=== PATIENT | female | born 1975 | race Native Hawaiian/Other Pacific Islander ===

== ENCOUNTER 2017-01-31 06:58 | Outpatient (CLI) | payer OTHER ==
[~2017-01-31 06:58] MED LIST: AMITRIPTYLIN50 MG PO; ATIVAN0.5 MG PO; BACLOFEN20 MG OR; BUTO10SO; CLONIDINE0.1 MG PO; FLUO20CA6 PO; FLUOXETINE40 MG PO; GLUCOPHAGE1000 MG PO; HUMALOG100 MG/ML SC; INSU100I2 SC; LIPITOR20 MG PO; LISI10TA11 PO; LORA10TA3 PO; LORA1TAB17 PO; LORTAB 10/5001 EACH PO; NEURONTIN 100M100 MG OR; NOVOLOG SC; NOVOLOG100 MG/ML SC; OLAN10TA2 PO; PANT40TA PO; SIMV10TA PO; SIMV40TA57; SOMA350 MG PO; TIZA4TAB5 PO; TRIM800T12 PO; ZANTAC300 MG PO; ZOLP10TA2 PO
[2017-01-31 07:52] LABS: PLATELET COUNT 295 K/uL (152-353)
[2017-01-31 08:59] LABS: POTASSIUM 3.8 mmol/L (3.6-5.2); SODIUM 140 mmol/L (136-145)
== END 2017-01-31 19:03 | disposition home or self-care (01) ==
LOC: LABW 06:58
PROVIDERS: Family Medicine
DX: M54.5 Low back pain (principal); E03.8 Other specified hypothyroidism; E66.8 Other obesity; E11.9 Type 2 diabetes mellitus without complications; E55.9 Vitamin D deficiency, unspecified; R82.99 Other abnormal findings in urine
CPT/HCPCS: 36415; 80053; 80061; 81000; 82043; 82306; 82570; 83036; 84439; 84443; 84550; 85027; 87086; 87088

== ENCOUNTER 2017-02-26 03:05 | Observation (INO) | payer OTHER ==
[~2017-02-26] VITALS: Ht 165.1 cm; Wt 102.7 kg
[2017-02-26 03:15] VITALS: BP 146/88; TEMP 97.7
[2017-02-26 03:37] LABS: PLATELET COUNT 308 K/uL (152-353)
[2017-02-26 03:45] LABS: POTASSIUM 4.2 mmol/L (3.6-5.2); SODIUM 137 mmol/L (136-145)
[2017-02-26 08:00] VITALS: BP 126/67; TEMP 98.7
[2017-02-26 10:17] VITALS: BP 126/67; TEMP 98.7; Ht 165.1 cm; Wt 102.7 kg
[2017-02-26 12:00] VITALS: BP 120/70; TEMP 98.5
[2017-02-26 16:00] VITALS: BP 101/52; TEMP 98.7
[2017-02-26 20:00] VITALS: BP 134/72; TEMP 98
[2017-02-27] VITALS: BP 105/58; TEMP 99.7
[2017-02-27 04:00] VITALS: BP 97/55; TEMP 99.1
[2017-02-27 06:59] LABS: PLATELET COUNT 258 K/uL (152-353)
[2017-02-27 07:09] LABS: POTASSIUM 4.2 mmol/L (3.6-5.2); SODIUM 132 mmol/L (136-145)
[2017-02-27 08:00] VITALS: BP 127/55; TEMP 98.7
[2017-02-27 12:00] VITALS: BP 90/48; TEMP 99.4
[2017-02-27 16:00] VITALS: BP 95/42; TEMP 99.3
[2017-02-27 20:00] VITALS: BP 117/52; TEMP 98.7
[2017-02-28] VITALS: BP 109/61; TEMP 99.1
[2017-02-28 04:00] VITALS: BP 113/64; TEMP 99
[2017-02-28 04:12] LABS: PLATELET COUNT 242 K/uL (152-353)
[2017-02-28 04:38] LABS: POTASSIUM 4.5 mmol/L (3.6-5.2); SODIUM 136 mmol/L (136-145)
[2017-02-28 08:00] VITALS: BP 111/62; TEMP 98.8
[2017-02-28 12:00] VITALS: BP 167/65; TEMP 99.4
== END 2017-02-28 14:00 | disposition home or self-care (01) ==
LOC: ED 03:05 → MED/SURG 05:00
PROVIDERS: Emergency Medicine
DX: K85.90 Acute pancreatitis without necrosis or infection, unspecified (principal); R10.84 Generalized abdominal pain
CPT/HCPCS: 36415; 36591; 80053; 82150; 82948; 83690; 83735; 85027; 86318; 93005; 96360; 96361; 96374; 96375; 99220; 99284; G0378; J1170; J3490; Q9963

== ENCOUNTER 2017-04-11 15:04 | Outpatient (CLI) | payer OTHER | END 2017-04-11 19:36 | disposition home or self-care (01) | LOC: RAD 15:04 | DX: M54.5 Low back pain (principal) ==

== ENCOUNTER 2017-08-15 15:12 | Outpatient (CLI) | payer OTHER | END 2017-08-15 19:13 | disposition home or self-care (01) | LOC: RAD 15:12 | DX: M54.31 Sciatica, right side (principal); M54.5 Low back pain; M25.551 Pain in right hip ==

== ENCOUNTER 2018-01-22 11:01 | Outpatient (CLI) | payer OTHER | END 2018-01-22 21:57 | disposition home or self-care (01) | LOC: MAMMO 11:01 | DX: Z12.31 Encounter for screening mammogram for malignant neoplasm of breast (principal) ==

== ENCOUNTER 2018-01-31 08:17 | Outpatient (CLI) | payer OTHER ==
[2018-01-31 08:43] LABS: PLATELET COUNT 312 K/uL (152-353)
== END 2018-01-31 22:04 | disposition home or self-care (01) ==
LOC: LABW 08:17
PROVIDERS: Podiatrist
DX: Z01.810 Encounter for preprocedural cardiovascular examination (principal); Z01.811 Encounter for preprocedural respiratory examination; Z01.812 Encounter for preprocedural laboratory examination; E11.41 Type 2 diabetes mellitus with diabetic mononeuropathy
CPT/HCPCS: 36415; 80053; 83036; 85027; 93005

== ENCOUNTER 2019-01-30 11:48 | Outpatient (CLI) | payer OTHER | END 2019-01-30 20:32 | disposition home or self-care (01) | LOC: LABW 11:48 | DX: B35.1 Tinea unguium (principal) | CPT/HCPCS: 36415; 84450; 84460 ==

== ENCOUNTER 2019-02-10 12:37 | Observation (INO) | payer OTHER ==
[~2019-02-10] VITALS: Ht 165.1 cm; Wt 108.5 kg
[2019-02-10 13:27] LABS: PLATELET COUNT 279 K/uL (152-353)
[2019-02-10 13:57] VITALS: BP 140/75; TEMP 98.7; Ht 165.1 cm; Wt 108.5 kg
--- NOTE | 2019-02-10 14:13 | NUR ---
1250 IN ADMISSION ASSESSMENT PT DENIES BEING ALLERGIC TO TORADOL. TORADOL REMOVED FROM PT ALLERGIES. CONSULTED WITH PHARMACY TO VERIFY REMOVING ALLERGY.
--- NOTE | 2019-02-10 14:16 | NUR ---
[address] ANDRADE TO REPORT LABS. REC'D ORDERS FOR CT WITHOUT CONTRAST. INCREASE DILAUDID FROM 1MG TO 2MG Q4HRS IF PT PAIN LEVEL HAS NOT COME DOWN.
[2019-02-10 16:00] VITALS: BP 140/66; TEMP 98.2
[2019-02-10 19:33] VITALS: BP 132/75; TEMP 97.8
--- NOTE | 2019-02-10 20:35 | NUR ---
Dr. Prasad called to check status of Patient, report given to Physician. New orders received, noted and carried out.
[2019-02-11] VITALS (7 sets, daily range): BP systolic 102–132; BP diastolic 57–76; TEMP 97.5–98.4
[2019-02-11 00:15] LABS: PLATELET COUNT 252 K/uL (152-353)
[2019-02-11 01:15] LABS: POTASSIUM 4.4 mmol/L (3.6-5.2)
[2019-02-11 06:31] LABS: PLATELET COUNT 275 K/uL (152-353)
[2019-02-11 06:40] LABS: POTASSIUM 4.7 mmol/L (3.6-5.2)
--- NOTE | 2019-02-11 06:57 | NUR ---
Patient was admitted with Acute Abdominla Pain, N/V, Dehydation, pancreatitis, DM II and is presently NPO. 5'5" and IBW 125+/-10% and is 190% IBW and BMI 39.6 and is Class II Obesity and Kcal for IBW 0283-5663, Protein 55-65 grams++, and Fluids for weight at 2700+++ d/t N/V and dehydration. Recommend: 1-Advance to a 1800 Calorie High Fiber, High Protein diet with increased MUS Fats (Avocado, Nuts, Canola and [place] Oil) and avoid Fast Foods and Fried Foods
--- NOTE | 2019-02-11 14:07 | NUR ---
1100 PT LAYING IN BED RESTING WATCHING TV. PT DENIES ANY COMPLAINTS AT THIS TIME. [address] ANDRADE TO STOP PT PHENERGAN AND START ZOFRAN 4MG IV Q6HRS.
[2019-02-11 17:31] LABS: POTASSIUM 4.3 mmol/L (3.6-5.2)
[2019-02-12 04:00] VITALS: BP 125/73; TEMP 98.2
--- NOTE | 2019-02-12 04:27 | NUR ---
Patient is a 43 YOF and was admitted with acute abdominla pain, N/V and dehydration, DM II and R/O Pancreatitis and is presently NPO and IBW 125+/-10% and is 190%IBW and BMI at 39.6 and is Class II Obesity and kcal needs for IBW 3987-8839, Protein needs - 57-67 grams and Fluids 3324-9356 and for weight at 238 = 5758-4903 for weight x 30 ++ d/x dx. Recommend: 1- INcrease Fluids as Tolerated. 2- Advance to a 1800 Calorie High Fiber diet
[2019-02-12 05:46] LABS: PLATELET COUNT 231 K/uL (152-353)
[2019-02-12 06:06] LABS: POTASSIUM 4.8 mmol/L (3.6-5.2)
[2019-02-12 08:00] VITALS: BP 131/65; TEMP 97.9
[2019-02-12 12:00] VITALS: BP 108/60; TEMP 98
[2019-02-12 16:00] VITALS: BP 111/60; TEMP 98
[2019-02-12 20:19] VITALS: BP 138/57; TEMP 98.6
[2019-02-12 23:43] VITALS: BP 121/79; TEMP 97.7
[2019-02-13 04:00] VITALS: BP 145/79; TEMP 98.3
[2019-02-13 05:06] LABS: POTASSIUM 4.4 mmol/L (3.6-5.2)
[2019-02-13 08:00] VITALS: BP 139/82; TEMP 98.1
[2019-02-13 12:00] VITALS: BP 109/64; TEMP 97.8
--- NOTE | 2019-02-13 14:25 | NUR ---
IV DC TIP INTACT. PT DC VIA WC. PT INSTRUCTED TO F/U WITH DR ANDRADE ON 02/28/19 AT 1030. PT WILL BE REFERRED TO DR JENNINGS AN OUTPATIENT. PRESCRIPTIONS GIVEN FOR PROTONIX 40 MG PO DAILY, TRAMADOL 50 MG PO Q4-6 HR PRN PAIN, MIRALAX 17 GM MIXED WITH 8 OZ JUICE ONCE-TWICE A DAY PRN CONSTIPATION PRESCRIPTION CALLED INTO [facility] FOR PHENERGAN 25 MG PO Q6HR PRN NAUSEA/ VOMITTING. PT INSTRUCTED TO CALL DR ANDRADE IF N/V PERSIST OR PAIN INCREASES. PT INSTRUCTED TO FOLLOW A BLAND DIET, INCREASE FLUID INTAKE, AND AVOID SOFT DRINKS. PT VERBALIZES UNDERSTANDING.
== END 2019-02-13 14:25 | disposition home or self-care (01) ==
LOC: MED/SURG 12:37
PROVIDERS: ADMIT Family Medicine
DX: K85.90 Acute pancreatitis without necrosis or infection, unspecified (principal); R10.84 Generalized abdominal pain; E86.0 Dehydration; R11.2 Nausea with vomiting, unspecified; E11.9 Type 2 diabetes mellitus without complications; M79.7 Fibromyalgia; E78.49 Other hyperlipidemia; E03.8 Other specified hypothyroidism
CPT/HCPCS: 36415; 74022; 80053; 80061; 81000; 82150; 82948; 83605; 83690; 85027; 87040; 96361; 96365; 96372; 96375; 99220; G0378; G0379; J1170; J1650; J1885; J1956; J2405; J2550; J3490; Q9963

== ENCOUNTER 2019-03-22 10:21 | Outpatient (CLI) | payer OTHER | END 2019-03-22 22:37 | disposition home or self-care (01) | LOC: LABW 10:21 | DX: B35.1 Tinea unguium (principal) | CPT/HCPCS: 36415; 84450; 84460 ==

== ENCOUNTER 2019-07-20 19:32 | Emergency (ER) | payer OTHER ==
[~2019-07-20] VITALS: Ht 165.1 cm; Wt 108.4 kg
[2019-07-20 20:31] LABS: PLATELET COUNT 290 K/uL (152-353)
[2019-07-20 20:38] LABS: POTASSIUM 4.3 mmol/L (3.6-5.2)
[2019-07-20 20:49] LABS: PARTIAL THROMBOPLASTIN TIME 20.2 SECONDS (24.5-33.6)
[2019-07-20 21:55] VITALS: BP 133/64; TEMP 98.1
== END 2019-07-20 21:55 | disposition home or self-care (01) ==
LOC: ED 19:32
PROVIDERS: Hospitalist
DX: K21.9 Gastro-esophageal reflux disease without esophagitis (principal); K29.70 Gastritis, unspecified, without bleeding; K59.09 Other constipation
CPT/HCPCS: 36415; 80053; 81000; 81025; 82150; 83690; 85027; 85610; 85730; 96360; 96375; 99284; J1885; J2405; J3490

== ENCOUNTER 2019-08-04 10:47 | Observation (INO) | payer OTHER ==
[~2019-08-04] VITALS: Ht 165.1 cm; Wt 105.3 kg
[2019-08-04 12:36] VITALS: BP 167/91; TEMP 98.4; Ht 165.1 cm; Wt 105.3 kg
[2019-08-04 13:17] LABS: PLATELET COUNT 252 K/uL (152-353)
[2019-08-04 13:42] LABS: POTASSIUM 3.8 mmol/L (3.6-5.2)
[2019-08-04] MEDS ORDERED: HYDR10TA47 PO (16:08)
[2019-08-04] MEDS ORDERED: LORA1TAB17 PO (16:08)
[2019-08-04] MEDS ORDERED: DULOXETINE HCL60 MG PO (16:09)
[2019-08-04] MEDS ORDERED: PHENTERMINE37.5 MG PO (16:09)
[2019-08-04] MEDS ORDERED: AMITRIPTYLINE H75 MG PO (16:10)
[2019-08-04] MEDS ORDERED: FORTAMET1000 MG PO (16:11)
[2019-08-04] MEDS ORDERED: BASAGLAR K100 UNIT/M SC (16:11)
[2019-08-04] MEDS ORDERED: NEURONTIN800 MG PO (16:12)
[2019-08-04] MEDS ORDERED: OLANZAPINE10 M2 PO (16:12)
[2019-08-04] MEDS ORDERED: ALLO100T22 PO (16:13)
[2019-08-04] MEDS ORDERED: LIPITOR20 MG PO (16:13)
[2019-08-04 16:16] VITALS: BP 120/66; TEMP 98
[2019-08-04 20:00] VITALS: BP 126/78; TEMP 98.3
[2019-08-04 23:53] VITALS: BP 117/70; TEMP 98.1
[2019-08-05 03:58] VITALS: BP 131/75; TEMP 98.3
[2019-08-05 08:00] VITALS: BP 134/73; TEMP 98.1
[2019-08-05 12:00] VITALS: BP 100/56; TEMP 98
[2019-08-05 16:00] VITALS: BP 97/65; TEMP 98.1
[2019-08-05 20:00] VITALS: BP 116/61; TEMP 98.5
[2019-08-06] VITALS: BP 112/54; TEMP 98.4
[2019-08-06 04:00] VITALS: BP 106/61; TEMP 98.5
[2019-08-06 05:56] LABS: PLATELET COUNT 234 K/uL (152-353)
[2019-08-06 06:18] LABS: POTASSIUM 4.5 mmol/L (3.6-5.2)
[2019-08-06 08:00] VITALS: BP 133/76; TEMP 98.4
[2019-08-06 12:00] VITALS: BP 137/61; TEMP 98.7
[2019-08-06 16:00] VITALS: BP 138/78; TEMP 98.4
[2019-08-06 20:00] VITALS: BP 115/59; TEMP 98.4
[2019-08-07] VITALS: BP 143/73; TEMP 98
[2019-08-07 04:00] VITALS: BP 119/61; TEMP 98.3
[2019-08-07 07:55] VITALS: BP 119/74; TEMP 98.3
[2019-08-07 12:00] VITALS: BP 110/77; TEMP 98.3
== END 2019-08-07 12:45 | disposition home or self-care (01) ==
LOC: MED/SURG 10:47
PROVIDERS: ADMIT Family Medicine
DX: K85.80 Other acute pancreatitis without necrosis or infection (principal); E86.0 Dehydration; R63.0 Anorexia; E11.9 Type 2 diabetes mellitus without complications
CPT/HCPCS: 80053; 80061; 81000; 82150; 82948; 83690; 85027; 87040; 96361; 96365; 96367; 96372; 96374; 96375; 99220; G0378; G0379; J1170; J1650; J2175; J2550; J3490

== ENCOUNTER 2019-12-24 13:17 | Observation (INO) | payer OTHER ==
[~2019-12-24] VITALS: Ht 165.1 cm; Wt 107.5 kg
[~2019-12-24 13:17] MED LIST changes: +ALLO100T22 PO; +AMITRIPTYLINE H75 MG PO; +BASAGLAR K100 UNIT/M SC; +DULOXETINE HCL60 MG PO; +FORTAMET1000 MG PO; +HYDR10TA47 PO; +NEURONTIN800 MG PO; +OLANZAPINE10 M2 PO; +PHENTERMINE37.5 MG PO
[2019-12-24 15:29] VITALS: BP 141/83; TEMP 98.4; Ht 165.1 cm; Wt 107.5 kg
[2019-12-24 16:00] VITALS: BP 140/79; TEMP 98.4
[2019-12-24 16:11] LABS: PLATELET COUNT 296 K/uL (152-353)
[2019-12-24 16:20] LABS: POTASSIUM 3.9 mmol/L (3.6-5.2)
[2019-12-24] MEDS ORDERED: BASAGLAR K100 UNIT/M SC (19:12)
[2019-12-24 19:52] VITALS: BP 134/75; TEMP 98.7
[2019-12-25 00:28] VITALS: BP 113/55; BP 126/49; TEMP 98.5; TEMP 99.1
[2019-12-25 03:56] VITALS: BP 124/70; TEMP 98.1
[2019-12-25 05:11] LABS: POTASSIUM 3.8 mmol/L (3.6-5.2)
[2019-12-25 05:24] LABS: PLATELET COUNT 250 K/uL (152-353)
[2019-12-25 08:00] VITALS: BP 123/63; TEMP 98.7
[2019-12-25 12:00] VITALS: BP 127/76; TEMP 98.9
--- NOTE | 2019-12-25 15:28 | NUR ---
PATIENT GIVEN DISCHARGE INSTRUCTIONS WITH VERBAL UNDERSTANDING NOTED. PER ... PHENEREGAN 25 MG PO NEEDED EVERY 6 HOURS DISPENSE [address] TO [facility]. PATIENT IV 22G REMOVED WITH TIP INTACT TO THE LEFT FOREARM AND SECURED WITH TAPE AND COVERED WITH TAPE. PATIENT AMBULATED WITH MOTHER AT HER BEDSIDE TO ER ENTRANCE. PATIENT LEFT IN NO ACUTE DISTRESS AT THIS TIME. IS AWARE THAT PATIENT DID HAVE A BOWEL MOVEMENT X2 WITH NO PAIN IN HER ABDOMEN AT THIS TIME. NO OTHERS WERE GIVEN.
== END 2019-12-25 15:45 | disposition home or self-care (01) ==
LOC: MED/SURG 13:17
PROVIDERS: ADMIT Family Medicine
DX: K59.09 Other constipation (principal); E86.0 Dehydration; E11.9 Type 2 diabetes mellitus without complications
CPT/HCPCS: 80053; 81000; 82150; 83690; 85027; 99220; G0378; G0379; J1170; J1650; J2405; J3490

== ENCOUNTER 2020-09-18 19:27 | Emergency (ER) | payer OTHER ==
[~2020-09-18] VITALS: Ht 165.1 cm; Wt 107.5 kg
[2020-09-18 19:50] VITALS: TEMP 98.5
[2020-09-18 21:40] VITALS: BP 121/65
== END 2020-09-18 21:40 | disposition home or self-care (01) ==
LOC: ED 19:27
DX: G58.8 Other specified mononeuropathies (principal)
CPT/HCPCS: 96372; 99282; J1885

== ENCOUNTER 2020-10-11 10:28 | Outpatient (CLI) | payer OTHER | END 2020-10-11 21:53 | disposition home or self-care (01) | LOC: LAB 10:28 | PROVIDERS: ATTEND Family Medicine | DX: Z20.828 Contact with and (suspected) exposure to other viral communicable diseases (principal) | CPT/HCPCS: 87635; G2023; U0003 ==

== ENCOUNTER 2020-10-11 17:04 | Observation (INO) | payer OTHER ==
[~2020-10-11] VITALS: Ht 165.1 cm; Wt 105.7 kg
[2020-10-11 17:49] VITALS: BP 119/64; TEMP 97.6; Ht 165.1 cm; Wt 105.7 kg
[2020-10-11 18:06] LABS: PLATELET COUNT 264 K/uL (152-353)
[2020-10-11 20:00] VITALS: BP 112/65; TEMP 98
[2020-10-12] VITALS (7 sets, daily range): BP systolic 96–134; BP diastolic 45–69; TEMP 97.8–98.3
[2020-10-13 04:23] VITALS: BP 106/61; TEMP 98
[2020-10-13 08:00] VITALS: BP 125/70; TEMP 97.7
[2020-10-13 12:00] VITALS: BP 120/63; TEMP 97.6
[2020-10-13 16:00] VITALS: BP 102/59; TEMP 97.5
[2020-10-13 20:00] VITALS: BP 134/72; TEMP 97.8
[2020-10-14] VITALS: BP 130/82; TEMP 97.8
[2020-10-14 04:00] VITALS: BP 111/69; TEMP 97.7
[2020-10-14 08:00] VITALS: BP 124/74; TEMP 98.3
[2020-10-14 12:00] VITALS: BP 135/69; TEMP 97.6
== END 2020-10-14 13:55 | disposition home or self-care (01) ==
LOC: MED/SURG 17:04
PROVIDERS: ADMIT Family Medicine; ATTEND Family Medicine
DX: B02.8 Zoster with other complications (principal); G62.9 Polyneuropathy, unspecified; H10.89 Other conjunctivitis; E11.40 Type 2 diabetes mellitus with diabetic neuropathy, unspecified; I10 Essential (primary) hypertension; G47.33 Obstructive sleep apnea (adult) (pediatric); Z20.828 Contact with and (suspected) exposure to other viral communicable diseases
CPT/HCPCS: 80053; 82948; 85027; 87635; 96365; 96367; 96372; 96375; 99220; G0378; G0379; G2023; J0133; J0696; J1170; J1815; J2930; J3490; U0003

== ENCOUNTER 2020-12-01 09:15 | Outpatient (CLI) | payer OTHER | END 2020-12-01 21:41 | disposition home or self-care (01) | LOC: LAB 09:15 | PROVIDERS: ATTEND Family Medicine | DX: Z20.828 Contact with and (suspected) exposure to other viral communicable diseases (principal) ==

== ENCOUNTER 2021-01-10 04:51 | Observation (INO) | payer OTHER ==
[~2021-01-10] VITALS: Ht 165.1 cm; Wt 108.5 kg
[2021-01-10 05:03] VITALS: BP 148/88; TEMP 98.2
[2021-01-10 05:43] LABS: PLATELET COUNT 279 K/uL (152-353)
[2021-01-10 05:56] LABS: POTASSIUM 3.8 mmol/L (3.6-5.2)
[2021-01-10 07:14] VITALS: BP 154/82
[2021-01-10 09:00] VITALS: BP 132/78
[2021-01-10 11:00] VITALS: BP 143/71
[2021-01-10 11:47] VITALS: BP 152/74; TEMP 97.8; Ht 165.1 cm; Wt 108.5 kg
[2021-01-10 13:09] LABS: PLATELET COUNT 232 K/uL (152-353)
[2021-01-10 13:31] LABS: POTASSIUM 4.7 mmol/L (3.6-5.2)
[2021-01-10] MEDS ORDERED: ALPR0.5T24 PO (13:36)
[2021-01-10] MEDS ORDERED: ACID CONTROL MA20 MG PO (13:37)
--- NOTE | 2021-01-10 15:00 | NUR ---
PT STATES SHE HAD LAPROSCOPIC SURGERY ON 01/07/21 FOR REMOVAL OF ADHESIONS, PT HAS INCISION WOUNDS TO RLQ, PUBIS, AND UMBILICUS THAT ARE CLOSED WITHOUT DRAINAGGE OR REDNESS NOTED
--- NOTE | 2021-01-10 15:45 | NUR ---
PT CALLED ME TO ROOM AND STATED SHE WAS HAVING PAIN UNDER LEFT BREAST AND IN MIDDLE OF BACK . PT NOT SHORT OF BREATHE . PT STATES SHE HASNT HAD ANY PAIN LIKE THIS IN THE PAST. PT AWAKE AND ALERT. WILL CALL
[2021-01-10 20:00] VITALS: BP 158/81; TEMP 97.6
--- NOTE | 2021-01-10 20:57 | NUR ---
01/10/21 AT 2055 PATIENT RESTING QUIETLY WATCHING TV,DENIES ANY COMPLAINTS AT THIS TIME. CALL LIGHT WITHIN REACH. WILL CONTINUE TO MONITOR.
[2021-01-11] VITALS: BP 177/85; TEMP 98.5
[2021-01-11 04:00] VITALS: BP 163/77; TEMP 98.5
[2021-01-11 08:00] VITALS: BP 155/88; TEMP 98
--- NOTE | 2021-01-11 08:08 | NUR ---
DR. ANDRADE IN TO SEE PT, DR. ANDRADE ORDERS FOR PT TO BEGIN A CLEAR LIQUID DIET FOR BREAKFAST AND ADVANCE TOLERATED FOR LUNCH, SHE ALSO ORDERS FOR CMP, CBC, LIPASE, CHOLESTEROL LEVELS TO BE DRAWN NOW, AND TO RESTART HOME MEDICATIONS AT THIS TIME ALL EXCEPT INSULIN, NO FURTHER ORDERS GIVEN AT THIS TIME
[2021-01-11 08:18] LABS: PLATELET COUNT 243 K/uL (152-353)
[2021-01-11 08:40] LABS: POTASSIUM 3.7 mmol/L (3.6-5.2)
--- NOTE | 2021-01-11 10:19 | NUR ---
CALLED AND REPORTED LABS AND BS TO DR. ANDRADE, DR. ANDRADE STATES FOR PT TOLERATES LUNCH THAT SHE CAN BE DISCHARGED, NO ORDERS GIVEN AT THIS TIME
[2021-01-11 12:00] VITALS: BP 141/75; TEMP 97.4
--- NOTE | 2021-01-11 15:05 | NUR ---
PT DC INSTRUCTIONS GIVEN AND EXPLAINED, PT VERBALIZED UNDERSTANDING, FOLLOWUP APPT. MADE WITH FOR 01/25/21 AT 1030, STATES FOR PT TO CONTINUE HOME MEDICATIONS PRESCRIBED, IV REMOVED WITH CATHETER INTACT, PT DC VIA AMBULATION TO PRIVATE VEHICLE, NAD NOTED
== END 2021-01-11 15:05 | disposition home or self-care (01) ==
LOC: ED 04:51 → MED/SURG 10:44
PROVIDERS: Family Medicine; Hospitalist; ADMIT Family Medicine; ATTEND Family Medicine
DX: K85.80 Other acute pancreatitis without necrosis or infection (principal); E86.0 Dehydration; E11.9 Type 2 diabetes mellitus without complications; R10.9 Unspecified abdominal pain; I10 Essential (primary) hypertension
CPT/HCPCS: 36415; 80053; 80061; 80307; 80320; 81000; 82150; 82948; 83605; 83690; 85027; 87040; 87635; 93005; 96360; 96361; 96365; 96366; 96372; 96375; 96376; 99220; 99284; G0378; J1170; J1815; J1885; J1956; J2405; J3490; Q9963; U0003

== ENCOUNTER 2021-02-11 09:37 | Outpatient (CLI) | payer OTHER ==
[~2021-02-11 09:37] MED LIST changes: +ACID CONTROL MA20 MG PO; +ALPR0.5T24 PO
== END 2021-02-11 21:48 | disposition home or self-care (01) ==
LOC: LAB 09:37
PROVIDERS: ATTEND Family Medicine
DX: U07.1 COVID-19 (principal); Z20.822 Contact with and (suspected) exposure to COVID-19
CPT/HCPCS: 87635; G2023; U0003

== ENCOUNTER 2021-02-14 09:48 | Emergency (ER) | payer OTHER ==
[~2021-02-14] VITALS: Ht 165.1 cm; Wt 99.8 kg
[2021-02-14 12:00] VITALS: BP 133/76; TEMP 98.9
== END 2021-02-14 12:00 | disposition home or self-care (01) ==
LOC: ED 09:48
DX: U07.1 COVID-19 (principal)
CPT/HCPCS: 87502; 87635; 87651; 99283; U0003

== ENCOUNTER 2021-02-16 10:41 | Emergency (ER) | payer OTHER ==
[~2021-02-16] VITALS: Ht 165.1 cm; Wt 99.8 kg
[2021-02-16 10:51] VITALS: BP 136/66; TEMP 96.8
== END 2021-02-16 11:04 | disposition home or self-care (01) ==
LOC: ED 10:41
DX: Z48.02 Encounter for removal of sutures (principal)

== ENCOUNTER 2021-03-24 12:49 | Outpatient (CLI) | payer OTHER | END 2021-03-24 22:49 | disposition home or self-care (01) | LOC: MAMMO 12:49 | PROVIDERS: ATTEND Obstetrics & Gynecology | DX: N95.9 Unspecified menopausal and perimenopausal disorder (principal); Z12.31 Encounter for screening mammogram for malignant neoplasm of breast ==

== ENCOUNTER 2021-05-11 16:04 | Observation (INO) | payer OTHER ==
[~2021-05-11] VITALS: Ht 165.1 cm; Wt 103.9 kg
[2021-05-11 17:37] VITALS: BP 117/54; TEMP 98.1; Ht 165.1 cm; Wt 103.9 kg
[2021-05-11 17:37] LABS: PLATELET COUNT 282 K/uL (152-353)
[2021-05-11 17:47] LABS: POTASSIUM 3.5 mmol/L (3.6-5.2)
[2021-05-11] MEDS ORDERED: OZEMPIC2 MG/1.5 M SC (19:02)
[2021-05-12 00:22] VITALS: BP 115/67; TEMP 98.7
[2021-05-12 04:00] VITALS: BP 111/63; TEMP 97.7
[2021-05-12 08:00] VITALS: BP 128/68; TEMP 98.1
[2021-05-12 12:00] VITALS: BP 151/72; TEMP 98.2
[2021-05-12 16:00] VITALS: BP 132/57; TEMP 98.1
[2021-05-12 20:00] VITALS: BP 123/62; TEMP 97.8
[2021-05-13 00:08] VITALS: BP 122/62; TEMP 98.1
[2021-05-13 04:00] VITALS: BP 116/56; TEMP 97.9
[2021-05-13 08:05] VITALS: BP 95/56; TEMP 97
[2021-05-13 08:48] LABS: PLATELET COUNT 224 K/uL (152-353)
[2021-05-13 09:10] LABS: POTASSIUM 4.1 mmol/L (3.6-5.2)
[2021-05-13 12:11] VITALS: BP 151/80; TEMP 98
[2021-05-13 15:52] VITALS: BP 127/79; TEMP 98.8
== END 2021-05-13 17:30 | disposition home or self-care (01) ==
LOC: MED/SURG 16:04
PROVIDERS: ADMIT Family Medicine; ATTEND Family Medicine
DX: L03.211 Cellulitis of face (principal); J32.8 Other chronic sinusitis; H66.90 Otitis media, unspecified, unspecified ear; R51.9 Headache, unspecified; E11.9 Type 2 diabetes mellitus without complications
CPT/HCPCS: 80053; 82948; 85027; 87040; 87635; 96365; 96366; 96372; 96375; 99220; G0378; G0379; J1170; J1815; J1956; J2930; J3490; U0003

== ENCOUNTER 2021-06-08 13:20 | Outpatient (CLI) | payer OTHER ==
[~2021-06-08 13:20] MED LIST changes: +OZEMPIC2 MG/1.5 M SC
[2021-06-08 14:28] LABS: PLATELET COUNT 280 K/uL (152-353)
[2021-06-08 14:38] LABS: POTASSIUM 3.8 mmol/L (3.6-5.2)
== END 2021-06-08 19:14 | disposition home or self-care (01) ==
LOC: RAD 13:20
PROVIDERS: ATTEND Podiatrist
DX: Z01.810 Encounter for preprocedural cardiovascular examination (principal); Z01.811 Encounter for preprocedural respiratory examination; Z01.812 Encounter for preprocedural laboratory examination
CPT/HCPCS: 36415; 80053; 83036; 85027; 93005

== ENCOUNTER 2021-07-14 16:03 | Outpatient (CLI) | payer OTHER ==
[2021-07-14 16:54] LABS: PLATELET COUNT 326 K/uL (152-353)
[2021-07-14 17:09] LABS: POTASSIUM 3.4 mmol/L (3.6-5.2)
== END 2021-07-14 19:00 | disposition home or self-care (01) ==
LOC: LABW 16:03
PROVIDERS: ATTEND Podiatrist
DX: Z01.811 Encounter for preprocedural respiratory examination (principal); Z01.810 Encounter for preprocedural cardiovascular examination; Z01.812 Encounter for preprocedural laboratory examination
CPT/HCPCS: 36415; 80053; 83036; 85027

== ENCOUNTER 2021-08-23 10:51 | Outpatient (CLI) | payer OTHER | END 2021-08-23 19:22 | disposition home or self-care (01) | LOC: LABW 10:51 | PROVIDERS: ATTEND Family Medicine | DX: R05.9 Cough, unspecified (principal); R05.3 Chronic cough; Z11.52 Encounter for screening for COVID-19 | CPT/HCPCS: 87635; G2023; U0003 ==

== ENCOUNTER 2022-02-08 14:14 | Emergency (ER) | payer OTHER ==
[~2022-02-08] VITALS: Ht 165.1 cm; Wt 132.5 kg
[2022-02-08 14:16] VITALS: TEMP 97
[2022-02-08 14:59] LABS: PLATELET COUNT 278 K/uL (152-353)
[2022-02-08 15:26] LABS: POTASSIUM 3.7 mmol/L (3.6-5.2)
[2022-02-08 16:30] VITALS: BP 129/77
== END 2022-02-08 16:30 | disposition home or self-care (01) ==
LOC: ED 14:14
PROVIDERS: Hospitalist
DX: K86.1 Other chronic pancreatitis (principal); F15.90 Other stimulant use, unspecified, uncomplicated
CPT/HCPCS: 36415; 80053; 80307; 80320; 81000; 83690; 85027; 93005; 96360; 96361; 96374; 96375; 99284; J1170; J2405; J3490; Q9963

== ENCOUNTER 2022-07-06 12:53 | Outpatient (CLI) | payer OTHER | END 2022-07-06 19:26 | disposition home or self-care (01) | LOC: MAMMO 12:53 | PROVIDERS: ATTEND Family Medicine | DX: E11.9 Type 2 diabetes mellitus without complications (principal); Z12.31 Encounter for screening mammogram for malignant neoplasm of breast ==

== ENCOUNTER 2022-10-23 09:07 | Outpatient (CLI) | payer OTHER | END 2022-10-23 21:36 | disposition home or self-care (01) | LOC: RAD 09:07 | PROVIDERS: ATTEND Family Medicine | DX: M79.642 Pain in left hand (principal) ==

== ENCOUNTER 2023-01-31 17:25 | Outpatient (CLI) | payer OTHER | END 2023-01-31 19:41 | disposition home or self-care (01) | LOC: RAD 17:25 | PROVIDERS: ATTEND Pain Medicine Interventional Pain Medicine | DX: M54.17 Radiculopathy, lumbosacral region (principal) ==

== ENCOUNTER 2023-04-26 11:37 | Outpatient (CLI) | payer OTHER | END 2023-04-26 19:23 | disposition home or self-care (01) | LOC: RAD 11:37 | PROVIDERS: ATTEND Nurse Practitioner Family | DX: M19.042 Primary osteoarthritis, left hand (principal); M54.2 Cervicalgia; M79.642 Pain in left hand; M79.671 Pain in right foot; M79.672 Pain in left foot ==